=== PATIENT | male | born 1950 | race Caucasian/White ===

== ENCOUNTER 2017-09-24 08:59 | Inpatient (IN) | payer OTHER ==
[~2017-09-24] VITALS: Ht 170.2 cm; Wt 62.8 kg
[2017-09-24 09:58] LABS: BASOPHIL % 0.5 % (0-2); PLATELET COUNT 158 x10^3mcL (130-400); RED CELL DISTRIBUTION WIDTH 12.2 % (11.5-14.5)
[2017-09-24 10:17] LABS: CALCIUM 8.6 mg/dL (8.5-10.1); CHLORIDE SERUM 101 mmol/L (98-107); GFR1 > 60 mL/min; GLUCOSE SERUM 124 mg/dL (74-106); POTASSIUM SERUM 3.5 mmol/L (3.5-5.1); SODIUM SERUM 139 mmol/L (136-145)
[2017-09-24 10:30] LABS: ALBUMIN 3.7 g/dL (3.4-5.0); ALKALINE PHOSPHATASE 88 U/L (46-116); ALT/SGPT 18 U/L (16-63); AST/SGOT 23 U/L (15-37); FREE T4 1.14 ng/dL (0.76-1.46); PHOSPHOROUS 2.7 mg/dL (2.5-4.9); TOTAL PROTEIN, SERUM 8.1 g/dL (6.4-8.2)
[2017-09-24 12:20] LABS: CHOLESTEROL/HDL RATIO 3.6
[2017-09-24 12:40] VITALS: BP 107/60
[2017-09-24 14:01] VITALS: BP 107/60
[2017-09-24] MEDS ORDERED: CARVEDILOL12.5 M1 PO (14:14)
[2017-09-24] MEDS ORDERED: ALDACTONE25 MG PO (14:15)
[2017-09-24] MEDS ORDERED: LOSARTAN POTASS25 M1 PO (14:15)
[2017-09-24] MEDS ORDERED: SIMVASTATIN20 M1 PO (14:16)
[2017-09-24] MEDS ORDERED: FUROSEMIDE20 MG PO (14:17)
[2017-09-24] MEDS ORDERED: ASPIRIN ADULT L81 M5 PO (14:17)
[2017-09-24 14:28] VITALS: BP 107/60
[2017-09-24 16:03] VITALS: BP 125/54
[2017-09-24 21:28] VITALS: BP 102/51
[2017-09-25 05:59] VITALS: BP 103/54
[2017-09-25 06:04] LABS: BASOPHIL % 0.1 % (0-2); PLATELET COUNT 136 x10^3mcL (130-400); RED CELL DISTRIBUTION WIDTH 13.2 % (11.5-14.5)
[2017-09-25 06:18] LABS: CALCIUM 7.9 mg/dL (8.5-10.1); CARBON DIOXIDE 24.4 mmol/L (21-32); CHLORIDE SERUM 103 mmol/L (98-107); CREATININE SERUM 0.8 mg/dL (0.7-1.3); GFR1 > 60 mL/min; GLUCOSE SERUM 142 mg/dL (74-106); POTASSIUM SERUM 3.5 mmol/L (3.5-5.1); SODIUM SERUM 137 mmol/L (136-145)
[2017-09-25 07:56] LABS: UA SPECIFIC GRAVITY 1.025 (1.005-1.035); microscopic required? YES; urine erythrocyte 2+ (NEGATIVE)
[2017-09-25 08:29] LABS: AMPHETAMINE QUAL UR NONE DETECTED (NEG <=1000)
[2017-09-25 10:20] VITALS: BP 98/48
[2017-09-25 11:45] VITALS: BP 113/54
[2017-09-25 13:15] VITALS: BP 111/58
[2017-09-25 16:57] VITALS: BP 118/60
[2017-09-25 20:36] VITALS: BP 110/64
[2017-09-26 05:56] VITALS: BP 111/62
[2017-09-26 06:53] LABS: PLATELET COUNT 163 x10^3mcL (130-400); RED CELL DISTRIBUTION WIDTH 12.6 % (11.5-14.5)
[2017-09-26 06:54] LABS: CALCIUM 8.2 mg/dL (8.5-10.1); CARBON DIOXIDE 25.4 mmol/L (21-32); CHLORIDE SERUM 103 mmol/L (98-107); CREATININE SERUM 0.7 mg/dL (0.7-1.3); GFR1 > 60 mL/min; GLUCOSE SERUM 147 mg/dL (74-106); MAGNESIUM 2.2 mg/dL (1.8-2.4); PHOSPHOROUS 2.9 mg/dL (2.5-4.9); POTASSIUM SERUM 3.5 mmol/L (3.5-5.1); SODIUM SERUM 138 mmol/L (136-145)
[2017-09-26 07:01] LABS: BASOPHIL % 0 % (0-2)
[2017-09-26 10:38] VITALS: BP 130/66
[2017-09-26] MEDS ORDERED: LAC PO (13:16)
[2017-09-26] MEDS ORDERED: LEVAQUIN750 MG PO (13:16)
[2017-09-26] MEDS ORDERED: CLEOCIN HCL300 MG PO (13:16)
[2017-09-26 14:13] VITALS: BP 105/58
[2017-09-26 15:20] VITALS: BP 105/58
== END 2017-09-26 18:54 | disposition home or self-care (01) | DRG 190 ==
LOC: ED 08:59 → DU 10:58
PROVIDERS: Emergency Medicine; ADMIT Family Medicine
DX: I21.A1 Myocardial infarction type 2 (principal); N17.0 Acute kidney failure with tubular necrosis; I42.9 Cardiomyopathy, unspecified; E78.5 Hyperlipidemia, unspecified; J10.1 Influenza due to other identified influenza virus with other respiratory manifestations; I10 Essential (primary) hypertension; F17.210 Nicotine dependence, cigarettes, uncomplicated; Z95.810 Presence of automatic (implantable) cardiac defibrillator
CPT/HCPCS: 83880; 84439; 87804; 94150; G0480; J1956; J2920; J2930; J3490; J7030; Q0092

== ENCOUNTER 2019-04-04 18:02 | Emergency (ER) | payer OTHER ==
[~2019-04-04] VITALS: Ht 175.3 cm; Wt 58.5 kg
[~2019-04-04 18:02] MED LIST: ALDACTONE25 MG PO; ASPIRIN ADULT L81 M5 PO; CARVEDILOL12.5 M1 PO; CLEOCIN HCL300 MG PO; FUROSEMIDE20 MG PO; LAC PO; LEVAQUIN750 MG PO; LOSARTAN POTASS25 M1 PO; SIMVASTATIN20 M1 PO
[2019-04-04 18:30] VITALS: Ht 175.3 cm; Wt 58.5 kg
[2019-04-04 20:51] VITALS: BP 105/58
== END 2019-04-04 20:51 | disposition home or self-care (01) ==
LOC: ED 18:02
DX: G44.209 Tension-type headache, unspecified, not intractable (principal); I10 Essential (primary) hypertension; E78.00 Pure hypercholesterolemia, unspecified; Z86.79 Personal history of other diseases of the circulatory system
CPT/HCPCS: J1885

== ENCOUNTER 2019-10-26 09:11 | Emergency (ER) | payer MEDICARE, MEDICAID ==
[~2019-10-26] VITALS: Ht 175.3 cm; Wt 72.6 kg
[2019-10-26 09:29] VITALS: Ht 175.3 cm; Wt 72.6 kg
[2019-10-26 11:09] LABS: CALCIUM 10.3 mg/dL (8.5-10.1); CARBON DIOXIDE 29.9 mmol/L (21-32); CHLORIDE SERUM 100 mmol/L (98-107); CREATININE SERUM 1.4 mg/dL (0.7-1.3); GLUCOSE SERUM 82 mg/dL (74-106); POTASSIUM SERUM 4.3 mmol/L (3.5-5.1); SODIUM SERUM 136 mmol/L (136-145)
[2019-10-26 13:23] LABS: BASOPHIL % 0.3 % (0-2); PLATELET COUNT 190 x10^3mcL (130-400); RED CELL DISTRIBUTION WIDTH 14.4 % (11.5-14.5)
[2019-10-26 13:51] VITALS: BP 120/62
== END 2019-10-26 13:51 | disposition home or self-care (01) ==
LOC: ED 09:11
PROVIDERS: Emergency Medicine
DX: R04.2 Hemoptysis (principal); I10 Essential (primary) hypertension; F17.200 Nicotine dependence, unspecified, uncomplicated
CPT/HCPCS: 36415; 83880; Q9967

== ENCOUNTER 2019-11-24 18:28 | Emergency (ER) | payer MEDICARE, OTHER ==
[~2019-11-24] VITALS: Ht 170.2 cm; Wt 66.7 kg
[~2019-11-24 18:28] MED LIST changes: +SYNTHROID0.112 MG PO
[2019-11-24 18:35] VITALS: Ht 170.2 cm; Wt 66.7 kg
[2019-11-24 19:06] LABS: BASOPHIL % 0.3 % (0-2); CALCIUM 12.2 mg/dL (8.5-10.1); CARBON DIOXIDE 29.9 mmol/L (21-32); CHLORIDE SERUM 93 mmol/L (98-107); CREATININE SERUM 1.3 mg/dL (0.7-1.3); GLUCOSE SERUM 91 mg/dL (74-106); PLATELET COUNT 264 x10^3mcL (130-400); POTASSIUM SERUM 4.4 mmol/L (3.5-5.1); SODIUM SERUM 128 mmol/L (136-145)
[2019-11-24 19:08] LABS: RED CELL DISTRIBUTION WIDTH 14.9 % (11.5-14.5)
[2019-11-24 19:11] LABS: ALKALINE PHOSPHATASE 113 U/L (46-116); ALT/SGPT 19 U/L (16-63); AST/SGOT 29 U/L (15-37); BILIRUBIN TOTAL 1.1 mg/dL (0.20-1.00)
[2019-11-24 19:13] LABS: ALBUMIN 3.1 g/dL (3.4-5.0); TOTAL PROTEIN, SERUM 8.4 g/dL (6.4-8.2)
[2019-11-24 21:31] LABS: microscopic required? YES; urine erythrocyte TRACE (NEGATIVE)
[2019-11-24 22:35] VITALS: BP 100/55
== END 2019-11-24 22:50 | disposition home or self-care (01) ==
LOC: ED 18:28
PROVIDERS: Emergency Medicine
DX: E86.0 Dehydration (principal); E87.1 Hypo-osmolality and hyponatremia; I10 Essential (primary) hypertension; D64.89 Other specified anemias; Z85.118 Personal history of other malignant neoplasm of bronchus and lung; Z95.0 Presence of cardiac pacemaker
CPT/HCPCS: J2405; J7030; Q0092

== ENCOUNTER 2019-11-26 17:05 | Inpatient (IN) | payer MEDICAID, MEDICARE, OTHER ==
[~2019-11-26] VITALS: Ht 170.2 cm; Wt 68.0 kg
[2019-11-26 17:25] VITALS: Ht 170.2 cm; Wt 68.0 kg
--- NOTE | 2019-11-26 17:38 | NUR ---
PT CAME TO THE ED TODAY WITH CO LOW BP. PT WAS JUST SEEN HERE 2 DAYS AGO FOR SAME. FAMILY STATES THIS HAS BEEN GOING ON X 2 WEEKS, YET PT IS STILL TAKING BP MEDS AT HOME. PT HAD F/U APPT TODAY WITH PCP AND THEY SENT PT OVER DUE TO LOW BP. PT DENIES ANY PAIN. DENIES ANY SOB OR CP. PT STATES OCCASIONAL DIZZINESS BUT DENIES AT THIS TIME. EKG BEING DONE AT BEDSIDE. PT IS HOOKED UP TO FULL MONITORS, SIDE RAILS UP, CALL LIGHT IN REACH, FAMILY AT BEDSIDE, WILL CONTINUE TO MONITOR
[2019-11-26 18:10] LABS: BASOPHIL % 0.1 % (0-2); PLATELET COUNT 264 x10^3mcL (130-400); RED CELL DISTRIBUTION WIDTH 15.3 % (11.5-14.5)
[2019-11-26 18:29] LABS: ALKALINE PHOSPHATASE 2 U/L (46-116); ALT/SGPT 2 U/L (16-63); BILIRUBIN TOTAL 0 mg/dL (0.20-1.00)
[2019-11-26 18:55] LABS: AST/SGOT 6 U/L (15-37)
--- NOTE | 2019-11-26 19:05 | NUR ---
REPORT GIVEN TO NICK TORRES FOR FURTHER CARE OF PT
[2019-11-26 19:11] LABS: CALCIUM 11.2 mg/dL (8.5-10.1); CHLORIDE SERUM 92 mmol/L (98-107); CREATININE SERUM 1.8 mg/dL (0.7-1.3); GLUCOSE SERUM 223 mg/dL (74-106); SODIUM SERUM 126 mmol/L (136-145)
[2019-11-26 19:17] LABS: TOTAL PROTEIN, SERUM 8.3 g/dL (6.4-8.2)
--- NOTE | 2019-11-26 21:11 | NUR ---
PT RESTING IN A POSITION OF COMFORT AOX4, RESP EVEN AND UNLABORED, NO ACUTE DISTRESS NOTED.
[2019-11-26 22:07] LABS: T3 TOTAL 0.39 ng/mL
[2019-11-26 22:15] LABS: FREE T4 0.81 ng/dL (0.76-1.46); FREE THYROXINE INDEX 1.8 ug/dL (1.4-4.5); T4(THYROXINE) 6.3 ug/dL (4.7-13.3)
[2019-11-26 22:48] LABS: MAGNESIUM 1.7 mg/dL (1.8-2.4); PHOSPHOROUS 3.3 mg/dL (2.5-4.9)
[2019-11-26 22:50] LABS: CHOLESTEROL/HDL RATIO 7.1
--- NOTE | 2019-11-26 23:10 | NUR ---
PT REPORT CALLED TO ORESTES TORRES TO ASSUME PT CARE. PT TRANSFERRED TO ICU 3 BY [facility] BY SOO TORRES AND CRISTINA EMT. PT ON FULL CM FOR TRANSPORT. PT ACCEPTED BY LAURA TORRES AT BEDSIDE. PT AOX4, RESP EVEN AND UNLABORED, NO ACUTE DISTRESS NOTED. PT TRANSFERRED FROM [facility] TO BED WITHOUT INCIDENT. PT FAMILY AT BEDSIDE.
[2019-11-26 23:29] VITALS: BP 99/51
--- NOTE | 2019-11-26 23:30 | NUR ---
REC'D PT FROM ED VIA [facility] ACCOMPANIED BY RN AND EMT. PT ALERT AND ORIENTED X4, PERRLA NOTED. PT ABLE TO FOLLOW VERBAL COMMANDS AND MAKE NEEDS KNOWN. EENT FREE OF DISCHARGE, NO JVD NOTED. RESPS E/U ON ROOM AIR, CHEST RISE EQUAL AND SYMMETRICAL. STACY LUNG SOUNDS CTA. BILINGUAL COUNTER SALES RETAIL IN PLACE SHOWING PACED RHYTHM, HR 72, BP 99/51, MAP 76. CHEST WALL STABLE. PT DENIES ANY CP. PT REPORTS SYNCOPE. PULSES ARE MOD X4, CAP REFILL <3 SEC. SKIN IS WARM AND DRY TO TOUCH. PERIPHERAL IV TO LAC INTACT, PATENT, DSG CDI. NS INFUSING @ 100ML/HR. PT IS AMBULATORY AT BASELINE, BUT CURRENTLY ON BED REST. ABD IS SOFT AND FLAT, BOWEL SOUNDS ACTIVE X4 QUADRANTS. PT VOIDS FREELY. SKIN INTACT. PT ABLE TO REPOSITION INDEPENDENTLY. ALL NEEDS MET AT THIS TIME, WILL CONTINUE TO MONITOR
[2019-11-27] VITALS (8 sets, daily range): BP systolic 91–119; BP diastolic 45–66
[2019-11-27 01:58] LABS: CALCIUM 10.3 mg/dL (8.5-10.1); CARBON DIOXIDE 24.8 mmol/L (21-32); CHLORIDE SERUM 99 mmol/L (98-107); CREATININE SERUM 1.2 mg/dL (0.7-1.3); GLUCOSE SERUM 139 mg/dL (74-106); POTASSIUM SERUM 3.9 mmol/L (3.5-5.1); SODIUM SERUM 130 mmol/L (136-145)
--- NOTE | 2019-11-27 04:43 | NUR ---
PT SEEN SLEEPING IN BED BUT EASILY AROUSABLE. DENIES ANY CP, SOB. RESPS E/U ON ROOM AIR. IV TO LAC INTACT, PATENT, DSG CDI. REPOSITIONED AT THIS TIME. ENCOURAGED TO CALL FOR ANY ASSISTANCE. CALL LIGHT WITHIN REACH. WILL CONTINUE TO MONITOR
[2019-11-27 05:27] LABS: BASOPHIL % 0.1 % (0-2); PLATELET COUNT 241 x10^3mcL (130-400)
[2019-11-27 05:36] LABS: RED CELL DISTRIBUTION WIDTH 14.8 % (11.5-14.5)
[2019-11-27 06:00] LABS: CALCIUM 10.4 mg/dL (8.5-10.1); CARBON DIOXIDE 24.7 mmol/L (21-32); CHLORIDE SERUM 100 mmol/L (98-107); CREATININE SERUM 1.2 mg/dL (0.7-1.3); GLUCOSE SERUM 92 mg/dL (74-106); MAGNESIUM 1.7 mg/dL (1.8-2.4); PHOSPHOROUS 1.8 mg/dL (2.5-4.9); POTASSIUM SERUM 3.8 mmol/L (3.5-5.1); SODIUM SERUM 132 mmol/L (136-145)
--- NOTE | 2019-11-27 11:19 | NUR ---
ECHOCARDIOGRAM COMPLETED.
--- NOTE | 2019-11-27 18:33 | NUR ---
RECEIVED PT FROM ICU, REPORT FROM CYNDI DONALD NURSE. PT ALERT AND ORIENTED. FAMILY AT BEDSIDE. BREATHING FREELY ON RA. SITTING UP AT EDGE OF BED FOR DINNER. NS INFUSING 100 CC HOUR TO LEFT AC. TELE # 6 NSR. NO C/O PAIN.
--- NOTE | 2019-11-27 18:35 | NUR ---
PT ADMITTED WITH LOW BP LAST NIGHT. BLOOD PRESSURE STEADILY INCREASED WITH GLUCAGON GIVEN AND FLUIDS. THE PT WAS FOUND TO HAVE A POOR EJECTION FRACTION AND CARDILOGY WAS CONSULTED. THE PT STAUS WAS CHANGED TO TELE AND I TRANSFERRED THE PT PER ORDER. REPORT GIVEN TO DAKOTAH TORRES AND PT WAS TRANSFERRED TO ROOM 221 - A/O WITHOUT C./O. FAMILY ALSO AT BEDSIDE.
--- NOTE | 2019-11-27 19:35 | NUR ---
RECEIVED PT FROM DAY SHIFT RN. PT AAOX4 DENIES COOL/DIZZINESS. BREATHING EVEN AND UNLABORED ON RA WITH NO SOB NOTED. TELE #6 PACED ON DEMAND, NSR ON MONITOR HR 76. PT DENIES CHEST PAIN/PRESSURE. IV LAC PATENT. NO ACUTE DISTRESS NOTED. CALL BUTTON WITHIN REACH. SAFETY PRECAUTIONS IN PLACE. WILL CONTINUE TO MONITOR.
[2019-11-28] VITALS (8 sets, daily range): BP systolic 94–114; BP diastolic 49–63
--- NOTE | 2019-11-28 03:01 | NUR ---
PT RESTING. BREATHING EVEN AND UNLABORED. NO SOB NOTED. NO RESP DISTRESS NOTED. CALL BUTTON WITHIN REACH. SAFETY PRECAUTIONS IN PLACE. WILL CONTINUE TO MONITOR.
--- NOTE | 2019-11-28 05:08 | NUR ---
PT SLEPT MOST OF THE NIGHT WITH NO ACUTE DISTRESS NOTED. IV PATENT, SL. PT MEDICATED PER EMAR. PT USES URINAL AT BEDSIDE. PT DENIES ANY PAIN. CALL BUTTON WITHIN REACH. SAFETY PRECAUTIONS IN PLACE. WILL CONTINUE TO MONITOR AND ENDORSE CARE TO DAY SHIFT RN.
[2019-11-28 06:39] LABS: BASOPHIL % 0.4 % (0-2); PLATELET COUNT 271 x10^3mcL (130-400)
[2019-11-28 06:49] LABS: CALCIUM 10.7 mg/dL (8.5-10.1); CARBON DIOXIDE 26.9 mmol/L (21-32); CHLORIDE SERUM 98 mmol/L (98-107); GLUCOSE SERUM 78 mg/dL (74-106); MAGNESIUM 1.5 mg/dL (1.8-2.4); PHOSPHOROUS 1.9 mg/dL (2.5-4.9); POTASSIUM SERUM 3.5 mmol/L (3.5-5.1); SODIUM SERUM 134 mmol/L (136-145)
[2019-11-28 06:56] LABS: RED CELL DISTRIBUTION WIDTH 15.2 % (11.5-14.5)
--- NOTE | 2019-11-28 07:23 | NUR ---
PT AWAKE. DENIES PAIN. NO ACUTE DISTRESS NOTED. SAFETY PRECAUTIONS IN PLACE. ENDORSED CARE TO DAY SHIFT RN, ALL QUESTIONS ADDRESSED.
--- NOTE | 2019-11-28 07:30 | NUR ---
PT IS AAOX4. TELE [address] SHOWING NSR AND PACED ON DEMAND. B/P 103/56 (71). LUNG SOUNDS CTA. ON R/A. IV CATH TO LAC PATENT, SITE WNL. COVERED WITH CDI DRESSING. PT DENIES PAIN AND DISCOMFORT AT THIS TIME. CALL LIGHT WITHIN REACH. BED IN LOWEST POSITION. WILL CONTINUE TO MONITOR.
--- NOTE | 2019-11-28 09:40 | NUR ---
NEUTRA-PHOS PO GIVEN FOR PHOS LEVEL =10/14. MAGNESIUM SULFATE IVPB GIVEN FOR MAG= 1.3. SCHEDULED MED GIVEN AND TOLERATED WELL. PT DENIES C/P AND DISCOMFORT. RESP EVEN AND UNLABORED. NO DISTRESS NOTED. CALL LIGHT WITHIN REACH.
--- NOTE | 2019-11-28 10:16 | NUR ---
PT IS AAOXR. TELE [address] SHOWING NSR AND PACED ON DEMAND. B/P 103/56 971). LUNG SOUNDS CTA. ON R/A. IV CATH TO LAC PATENT, SITE WNL. COVERED WITH CDI DRESSING. PT DENIES PAIN AND DISCOMFORT AT THIS TIME. CALL LIGHT WITHIN REACH. BED IN LOWEST POSITION. WILL CONTINUE TO MONITOR.
--- NOTE | 2019-11-28 12:19 | NUR ---
PT IS SITTING UP IN BED VISITING WITH FAMILY. RESP EVEN AND UNLABORED. PT DENIES PAIN AND DISCOMFORT. CALL LIGHT WITHIN REACH.
--- NOTE | 2019-11-28 13:57 | NUR ---
URINE COLLECTED FOR UDS AND TAKEN TO LAB.
--- NOTE | 2019-11-28 16:15 | NUR ---
PT WAS ASSISTED BEDSIDE TO ASSESS TOLERANCE. PT SAT FOR 5 MINUTES THEN BECAME SHAKY AND WEAK AND LEANED OVER ON TO BED. VS; T 98.7F, HR 97, RR 21, B/P 94/54 (69), O2 SAT 93% ON R/A. O2 N/C AT 2LPM APPLIED FOR COMFORT. PT REMAINED ORIENTED X4. PT BACK IN BED. PT EDUCATED TO MOVE EXTREMITIES FREQUENTLY TO INCREASE ACTIVITY TOLERANCE AND TO INCREASE DRINKING FLUIDS. PT ASSISTED DRINKING ONE GLASS 200ML WATER. RESP EVEN AND LABORED. WILL CONTINUE TO MONITOR. CALL LIGHT WITHIN REACH. BED ALARM ON. MELISSA TORRES CHARGE MADE AWARE.
--- NOTE | 2019-11-28 16:22 | NUR ---
PT VISITING WITH FAMILY. PT ENCOURAGED TO SIT AT BEDSIDE FOR A WHILE. IF HE CAN TOLERATE, THEN GET OOB AND AMBULATE. CALL NURSE FOR ASSISTANCE. PT STATED HE WILL TRY. WILL CONTINUE TO MONITOR.
[2019-11-28 16:48] LABS: AMPHETAMINE QUAL UR NONE DETECTED (See below)
--- NOTE | 2019-11-28 18:25 | NUR ---
PT FAMILY STATED PT WAS SHAKING AND VERY WEAK. ASSESSED PT. VS: 99.3F, 94, 20, 102/63 (74), O2 SAT AT 96% ON O2 N/C AT 2LPM. PT ENCOURAGED TO TAKE LONG DEEP BREATHS. PT FAMILY STATED THAT THE PT IS VERY STRESSED OVER HIS SITUATION. WILL CONTINUE TO MONITOR.
--- NOTE | 2019-11-28 18:43 | NUR ---
PT IS AAOX4, WEAK, REFUSED TO TALK MUCH. RESP EVEN AND UNLABORED. NO DISTRESS NOTED. IV CATH TO LFA INTACT. SITE WNL. TELE [address] READING NSR. WILL ENDORSE CARE TO NOC RN.
--- NOTE | 2019-11-28 19:35 | NUR ---
RECEIVED PT FROM DAY SHIFT RN. PT IS RESTING ATTHIS TIME, AROUSABLE TO VERBAL STIMULI. BREATHING EVEN AND UNLABORED ON NC 2L/MIN. NO SOB NOTED. TELE #6 SR W/ BBB. PACED ON DEMAND. NO ACUTE DISTRESS NOTED. FAMILY AT BEDSIDE. CALL BUTTON WITHIN REACH. SAFETY PRECAUTIONS IN PLACE. WILL MONITOR.
--- NOTE | 2019-11-28 23:00 | NUR ---
PT REPORTED HAVING PAIN ON AND OFF AT RIGHT SIDE OF GROIN AREA WITH A SMALL BUMP. ASSESSED PT NO BUMP NOTED. DR CYN BALLESTEROS AWARE OF PATIENTS CONCERNED.
--- NOTE | 2019-11-28 23:02 | NUR ---
PT REPORTED HAVING GENERALIZED PAIN, REQUESTING FOR TYLENOL. MEDICATED PER EMAR. SAFETY PRECAUTIONS IN PLACE. WILL CONTINUE TO MONITOR.
[2019-11-29] VITALS (8 sets, daily range): BP systolic 79–91; BP diastolic 43–50
--- NOTE | 2019-11-29 01:00 | NUR ---
ROUNDS MADE. PT RESTING. BREATHING EVEN AND UNLABORED. NO ACUTE DISTRESS NOTED. CALL BUTTON WITHIN REACH. SAFETY PRECAUTIONS IN PLACE. WILL CONTINUE TO MONITOR.
[2019-11-29 06:02] LABS: BASOPHIL % 0.3 % (0-2); PLATELET COUNT 264 x10^3mcL (130-400)
[2019-11-29 06:19] LABS: CALCIUM 10.4 mg/dL (8.5-10.1); CARBON DIOXIDE 29.1 mmol/L (21-32); CHLORIDE SERUM 94 mmol/L (98-107); CREATININE SERUM 1.3 mg/dL (0.7-1.3); GLUCOSE SERUM 77 mg/dL (74-106); MAGNESIUM 2.4 mg/dL (1.8-2.4); POTASSIUM SERUM 3.3 mmol/L (3.5-5.1); SODIUM SERUM 128 mmol/L (136-145)
[2019-11-29 06:20] LABS: RED CELL DISTRIBUTION WIDTH 14.8 % (11.5-14.5)
--- NOTE | 2019-11-29 06:34 | NUR ---
PT BP 82/43 (56). PT IS AWAKE AND ALERT. DENIES DIZZINESS. DR ADDISON MADE AWARE. AWAITING NEW ORDERS.
--- NOTE | 2019-11-29 07:35 | NUR ---
RECEIVED PATIENT. NO RESP DISTRESS NOTED. REMAINS ON 2L NC. NO COMPLAINTS OF PAIN AT THIS TIME. IV INTACT AND PATENT. NO ERYTHEMA/ SWELLING NOTED. SAFETY PRECAUTION IN PLACE. CALL LIGHT WITHIN REACH. WILL CONTINUE TO MONITOR.
--- NOTE | 2019-11-29 07:45 | NUR ---
PT AWAKE, NO ACUTE DISTRESS NOTED. SAFETY PRECAUTIONS IN PLACE. ENDORSED CARE TO DAY SHIFT RN, ALL QUESTIONS ADDRESSED.
--- NOTE | 2019-11-29 08:32 | NUR ---
PHYSICAL THERAPY NOTE ATTEMPTED FOR SCHEDULED PHYSICAL THERAPY TX SESSION, TX ON HOLD SECONDARY TO PT LOW B/P (). ATTENDING RN, ALTAF, MADE AWARE.
--- NOTE | 2019-11-29 08:40 | NUR ---
SPOKE WITH ELOISE ALLEN REGARDING PATIENT BLOOD PRESSURE AT 0700: 79/47, AND AT 0815: 85/43. PER ELOISE ALLEN GIVE PATIENT MIDODRINE 5 MG DAILY STARTING NOW. ELOISE ALLEN ALSO MADE AWARE OF POTASSIUM 3.3 LEVEL. PER ELOISE ALLEN GIVE PATIENT POTASSIUM 40 MEQ PO ONCE. WILL CONTINUE TO MONITOR.
--- NOTE | 2019-11-29 09:30 | NUR ---
PT STABLE. NO RESP DISTRESS NOTED. REMAINS ON ROOM AIR. NO COMPLAINTS OF PAIN AT THIS TIME. IV INTACT AND PATENT. NO ERYTHEMA/ SWELLING NOTED. SAFETY PRECAUTION IN PLACE. CALL LIGHT WITHIN REACH. WILL CONTINUE TO MONITOR. FAMILY AT BEDSIDE.
--- NOTE | 2019-11-29 14:05 | NUR ---
PATIETN STABLE AT THIS TIME. NO RESP DISTRESS NOTED. REMAINS ON ROOM AIR. NO COMPLAINTS OF PAIN AT THIS TIME. IV INTACT AND PATENT. NO ERYTHEMA/ SWELLING NOTED. SAFETY PRECAUTION IN PLACE. CALL LIGHT WITHIN REACH. WILL CONTINUE TO MONITOR. FAMILY AT BEDSIDE.
--- NOTE | 2019-11-29 14:56 | NUR ---
PHYSICAL THERAPY DAILY NOTES CO-SIGN All documentation done by the Beater Boss for 11/29/19 has been reviewed. I agree with the documentation. Reviewed/Co-Signed by: No Cam PT Documentation Done bY: [employer] JUNIOR NETWORK ADMINISTRATOR
--- NOTE | 2019-11-29 16:07 | NUR ---
PATIENT IN BED, STABLE. NO ACUTE RESP DISTRESS NOTED. NO COMPLAINTS OF PAIN AT THIS TIME. IV INTACT AND PATENT. SAFETY PRECAUTION IN PLACE. CALL LIGHT WITHIN REACH. WILL CONTINUE TO MONITOR. FAMILY AT BEDSIDE.
--- NOTE | 2019-11-29 17:00 | NUR ---
HOSPICE CIVIL TRANSPORTATION ENGINEER SEEN SPEAKING WITH PATIENT AND FAMILY REGARDING HOSPICE WITH [employer] MAKER, DELFINO HICKS. WILL CONTINUE TO MONITOR.
--- NOTE | 2019-11-29 17:39 | NUR ---
HOSPICE GILES [employer] MASTER DYER REQUESTED TO ELOISE ALLEN REGARDING HOSPICE. PHONE HANDED TO GILES WITH ALEJANDRO ON THE PHONE. ALL NEEDS ATTENDED TO. WILL CONTINUE TO MONITOR PATIENT. PATIENT IN BED, STABLE. NO ACUTE RESP DISTRESS NOTED. NO C/O PAIN. IV INTACT AND PATENT. SAFETY PRECAUTION IN PLACE. CALL LIGHT WITHIN REACH. WILL CONTINUE TO MONITOR. FAMILY AT BEDSIDE.
--- NOTE | 2019-11-29 18:00 | NUR ---
JANE FROM CASE MANAGEMENT AND HOSPICE PRODUCT SAFETY TECHNICIAN SEEN SPEAKING WITH FAMILY REGARDING HOSPICE. ALL QUESTIONS AND CONCERNS ADDRESSED. WILL CONTINUE TO MONITOR.
--- NOTE | 2019-11-29 18:25 | NUR ---
FAMILY IS REQUESTING TO SPEAK WITH DOCTOR. NOTIFIED FAMILY THAT THEY MAY SPEAK WITH NIGHT DOCTOR ELOISE ALLEN HAS ALREADY LEFT THE HOSPITAL. FAMILY VERBALIZED UNDERSTANDING. WILL ENDORSE TO CANDY MAKER NURSE. PATIENT IN BED. STABLE. NO ACUTE RESP DISTRESS NOTED. NO C/O PAIN. IV INTACT AND PATENT. SAFETY PRECAUTION IN PLACE. CALL LIGHT WITHIN REACH. WILL ENDORSE CARE TO CANDY MAKER NURSE. FAMILY AT BEDSIDE.
--- NOTE | 2019-11-29 19:30 | NUR ---
RECEIVED PT IN BED AWAKE, ALERT,ORIENTED X4. FAMILY AT BEDSIDE. PT HAS NO SOB ON ROOM AIR. HE HAS NO C/O PAIN AT THIS TIME. PT REQUESTING TO SPEAK TO THE DOCTOR AT THIS TIME. W/ HL TO LTAC. CALL LIGHT W/IN REACH.
--- NOTE | 2019-11-29 20:00 | NUR ---
INFORMED DR. ALBERTO THAT PT'S FAMILY IS REQUESTING TO SPEAK TO THE DOCTOR AT THIS TIME .
--- NOTE | 2019-11-29 20:48 | NUR ---
PT ACCOMPANIED TO THE RESTROOM. HE WALKED SLOWLY W/ STEADY GAIT. HE DENIED FEELING DIZZY.
--- NOTE | 2019-11-30 01:15 | NUR ---
PT APPEARS TO BE SLEEPING COMFORTABLY.
[2019-11-30 05:20] VITALS: BP 86/47
[2019-11-30 06:29] VITALS: BP 114/55
--- NOTE | 2019-11-30 06:30 | NUR ---
PT AWAKE AND RESTING COMFORTABLY IN BED. LATEST BP IS 114/55 HR=82 AFTER TAKING AM DOSE OF PRO-AMANTINE ( BP=86/47 BEFORE TAKING PRO-AMANTINE). PT DENIED HAVING DIZZINESS. HE REMAINS ALERT AND ORIENTED X4. NO EPISODE OF SOB AND PT ON ROOM AIR THROUGHOUT THE NIGHT. HE HAD NO C/O PAIN. HE IS ABLE TO AMBULATE W/ MINIMAL ASSISTANCE. ALL NEEDS ATTENDED TO.
[2019-11-30 06:42] LABS: CALCIUM 10.6 mg/dL (8.5-10.1); CARBON DIOXIDE 28.8 mmol/L (21-32); CHLORIDE SERUM 96 mmol/L (98-107); CREATININE SERUM 1.1 mg/dL (0.7-1.3); GLUCOSE SERUM 73 mg/dL (74-106); SODIUM SERUM 131 mmol/L (136-145)
[2019-11-30 07:05] LABS: BASOPHIL % 0.4 % (0-2); PLATELET COUNT 258 x10^3mcL (130-400)
[2019-11-30 07:26] LABS: RED CELL DISTRIBUTION WIDTH 14.8 % (11.5-14.5)
--- NOTE | 2019-11-30 07:33 | NUR ---
REPORT RECEIVED FROM MELISSA GODFREY. PATIENT RESTING COMFORTABLY IN BED. NO SIGNS OF DISTRESS. WILL CONTINUE TO MONITOR. CALL LIGHT WITHIN REACH.
[2019-11-30 08:57] VITALS: BP 90/48
[2019-11-30] MEDS ORDERED: PROA PO (10:10)
[2019-11-30 10:26] VITALS: BP 100/68
--- NOTE | 2019-11-30 11:38 | NUR ---
PATIENT TO BE DISCHARGED. ALL PAPERWORK PROVIDED FOR PATIENT. REGINA HARRISON CONTACTED EARNEST LARA, REGARDING HOME HEALTH SETUP FOR PATIENT. NEW CM NOTES TO BE NOTED PRIOR TO DISCHARGING PATIENT.
--- NOTE | 2019-11-30 12:00 | NUR ---
PATIENT AND FAMILY READY TO BE DISCHARGED. ALL DISCHARGE PAPERWORK PROVIDED FOR PATIENT. ALL BELONGINGS RETURNED TO PATIENT. NO SIGNS OF DISTRESS. PATIENT DISCHARGED VIA WHEELCHAIR WITH FAMILY.
--- NOTE | 2019-11-30 14:34 | NUR ---
PHYSICAL THERAPY DAILY NOTES CO-SIGN All documentation done by the Director Hospice Operations for 11/30/19 has been reviewed. I agree with the documentation. Reviewed/Co-Signed by: No Cam PT Documentation Done by:LUZ PARK ACID CLEANER
== END 2019-11-30 11:59 | disposition home health service (06) | DRG 207 ==
LOC: ED 17:05 → DU 21:07 → IC 21:07 → DU 11-27 18:24
PROVIDERS: Emergency Medicine; ADMIT Family Medicine
DX: I95.2 Hypotension due to drugs (principal); I42.9 Cardiomyopathy, unspecified; E87.1 Hypo-osmolality and hyponatremia; I50.22 Chronic systolic (congestive) heart failure; E83.42 Hypomagnesemia; E83.52 Hypercalcemia; I10 Essential (primary) hypertension; R00.1 Bradycardia, unspecified; D63.8 Anemia in other chronic diseases classified elsewhere; T46.5X5A Adverse effect of other antihypertensive drugs, initial encounter; E03.9 Hypothyroidism, unspecified; E78.5 Hyperlipidemia, unspecified; Z95.0 Presence of cardiac pacemaker; Z85.118 Personal history of other malignant neoplasm of bronchus and lung; Z87.891 Personal history of nicotine dependence
CPT/HCPCS: 82962; 83880; 84439; 97110-GP; 97116-GP; G0378; J1610; J2405; J3475; J7030; J7040; J7050; Q0092